=== PATIENT | female | born 1975 | race African-American/Black ===

== ENCOUNTER 2025-06-05 14:44 | Emergency (ER) | payer SELFPAY ==
[~2025-06-05] VITALS: Ht 172.7 cm; Wt 110.0 kg
[2025-06-05 14:48] VITALS: TEMP 36.7; O2SAT 99
[2025-06-05 15:03] VITALS: TEMP 98.06
[2025-06-05 15:32] VITALS: BP 147/99; PULSE 76; RESP 15; O2SAT 99
[2025-06-05] MEDS ORDERED: AMLO5TAB88 MT (16:52)
== END 2025-06-05 17:10 | disposition left against medical advice (07) ==
LOC: ER 14:44
DX: I10 Essential (primary) hypertension (principal); Z98.890 Other specified postprocedural states; Z53.29 Procedure and treatment not carried out because of patient's decision for other reasons
CPT/HCPCS: 93005; 99283